=== PATIENT | male | born 1945 | race Hispanic/Latino ===

== ENCOUNTER 2017-04-05 09:17 | Outpatient (CLI) | payer MEDICARE ==
--- NOTE | 2017-04-05 10:07 | XRay Report ---
LUMBOSACRAL SPINE, 3 VIEWS History: Neurogenic claudication. Back pain. Findings: Borderline osteopenia. There is 5 mm anterolisthesis of L4 with respect to L5. This appears to be secondary to degenerative facet arthropathy. No obvious pars defect. The remaining lumbar vertebra are normal in alignment. No evidence for acute fracture or bone lesion. Moderate to severe multilevel degenerative disc disease and facet arthropathy are identified. All levels are affected. Mild symmetric degenerative changes in the SI joints. Impression: Moderate to severe multilevel lumbar spondylosis as described. Grade 1 anterolisthesis of L4 with respect L5.
== END 2017-04-05 09:18 | disposition home or self-care (01) ==
LOC: SPVIMAG 09:17
PROVIDERS: ATTEND Internal Medicine
DX: M47.897 Other spondylosis, lumbosacral region (principal); M51.37 Other intervertebral disc degeneration, lumbosacral region; M12.88 Other specific arthropathies, not elsewhere classified, other specified site; I73.9 Peripheral vascular disease, unspecified
CPT/HCPCS: 72100

== ENCOUNTER 2017-09-20 09:31 | Outpatient (CLI) | payer MEDICARE ==
--- NOTE | 2017-09-20 11:53 | XRay Report ---
CHEST TWO VIEWS: 09/20/17 09:31:00 CLINICAL: Chest pain. COMPARISON: None FINDINGS: Normal heart and pulmonary vasculature. The lungs are normally expanded and clear.Exaggerated thoracic kyphosis and mild anterior wedging of multiple mid-thoracic vertebral bodies. No fracture lines are identified. Moderate degenerative change with osteophytes. IMPRESSION: No acute cardiopulmonary process. Age-indeterminate but probably chronic mid-thoracic anterior wedge compression fractures.
== END 2017-09-20 09:32 | disposition home or self-care (01) ==
LOC: SPVIMAG 09:31
PROVIDERS: ATTEND Internal Medicine
DX: Z01.818 Encounter for other preprocedural examination (principal); R07.9 Chest pain, unspecified; M41.84 Other forms of scoliosis, thoracic region
CPT/HCPCS: 71020